=== PATIENT | female | born 1990 | race Caucasian/White ===

== ENCOUNTER 2020-12-05 13:46 | Inpatient (IN) | payer OTHER ==
[~2020-12-05] VITALS: Ht 175.3 cm; Wt 113.4 kg
[2020-12-05 14:52] LABS: HEMOGLOBIN 14.2 gm/dl (12.3-15.3); RED BLOOD COUNT 4.75 M/UL (4.00-5.10); WHITE BLOOD COUNT 10.6 K/UL (4.5-11.0)
[2020-12-05] MEDS ORDERED: LABETALOL HCL200 MG PO (18:18)
[2020-12-06 00:33] LABS: BUN/CREATININE RATIO 12 (0-10)
[2020-12-06] MEDS ORDERED: IBUPROFEN800 MG PO (16:13)
[2020-12-06] MEDS ORDERED: HEMOCYTE324 MG PO (16:13)
[2020-12-06] MEDS ORDERED: COLACE100 MG PO (16:13)
== END 2020-12-07 20:02 | disposition home or self-care (01) | DRG 806 ==
LOC: GENOP 13:46 → OB 14:20
PROVIDERS: Obstetrics & Gynecology; ADMIT Obstetrics & Gynecology
PROC: 4A1HXCZ Monitoring of Products of Conception, Cardiac Rate, External Approach (ICD-10-PCS; 2020-12-05)
PROC: 10E0XZZ Delivery of Products of Conception, External Approach (ICD-10-PCS; principal; 2020-12-06)
PROC: 10907ZC Drainage of Amniotic Fluid, Therapeutic from Products of Conception, Via Natural or Artificial Opening (ICD-10-PCS; 2020-12-06)
PROC: 0W8NXZZ Division of Female Perineum, External Approach (ICD-10-PCS; 2020-12-06)
DX: O13.4 Gestational [pregnancy-induced] hypertension without significant proteinuria, complicating childbirth (principal); O41.03X0 Oligohydramnios, third trimester, not applicable or unspecified; Z37.0 Single live birth; Z3A.39 39 weeks gestation of pregnancy; Z20.822 Contact with and (suspected) exposure to COVID-19; O70.9 Perineal laceration during delivery, unspecified
CPT/HCPCS: 36415; 80053; 80307; 81001; 82570; 83518; 84156; 85014; 85018; 85025; 87086; J0595; J2590; J3430; J7030; J7120; U0002

== ENCOUNTER → 2021-05-02 | Outpatient (CLI) | payer OTHER ==
[~2021-05-02] MED LIST: COLACE100 MG PO; HEMOCYTE324 MG PO; IBUPROFEN800 MG PO; LABETALOL HCL200 MG PO
== END ==
LOC: KOH-I 09:29
DX: R74.8 Abnormal levels of other serum enzymes (principal); K76.0 Fatty (change of) liver, not elsewhere classified; K80.80 Other cholelithiasis without obstruction
CPT/HCPCS: 76705